=== PATIENT | female | born 1975 | race Caucasian/White ===

== ENCOUNTER 2018-04-20 21:48 | Emergency (ER) | payer OTHER ==
[~2018-04-20] VITALS: Ht 172.7 cm; Wt 118.2 kg
[2018-04-20] MEDS ORDERED: KETOROLAC TROMETHAMINE 30 MG/ML VIAL IVP ONE (22:30)
[2018-04-20] MEDS ORDERED: SODIUM CHLORIDE 0.9% 1,000 ML IV ONE (22:30)
[2018-04-20 22:40] LABS: BASOPHILS % (AUTO) 0.5 % (0.0-2.0); EOSINOPHILS % (AUTO) 0.8 % (1.0-6.0); HEMOGLOBIN 11.9 g/dL (12.0-16.0); LYMPHOCYTES # (AUTO) 1.9 K/uL (1.0-4.8); LYMPHOCYTES % (AUTO) 19.6 % (22.0-44.0); MEAN CORPUSCULAR HEMOGLOBIN 30.8 pg (26.0-34.0); MEAN CORPUSCULAR VOLUME 91 fL (80-100); MONOCYTES # (AUTO) 0.7 K/uL (0.1-1.0); MONOCYTES % (AUTO) 7.2 % (2.0-9.0); NEUTROPHILS # (AUTO) 6.9 K/uL (1.8-7.7); NEUTROPHILS % (AUTO) 71.9 % (40.0-70.0); PLATELET COUNT (AUTO) 331 K/uL (150-450); RED BLOOD CELL COUNT(AUTO) 3.87 MIL/uL (4.00-5.20); RED CELL DISTRIBUTION WIDTH 13.7 % (11.5-14.5)
[2018-04-20 23:05] LABS: ANION GAP 9 mmol/L (8-16); CALCIUM, TOTAL 8.9 mg/dL (8.8-10.5); CARBON DIOXIDE 25 mmol/L (22-29); CHLORIDE 101 mmol/L (98-107); CREATININE 0.99 mg/dL (0.60-1.30); GLOMERULAR FILTR. RATE CALC > 60 mL/min (>60); GLUCOSE,RANDOM 122 mg/dL (70-110); POTASSIUM 3.8 mmol/L (3.5-5.1); SODIUM SERUM 135 mmol/L (136-145); UREA NITROGEN, BLOOD 17 mg/dL (7-18)
[2018-04-20 23:16] LABS: ALANINE AMINOTRANSFERASE 30 U/L (12-78); ALBUMIN 3.6 g/dL (3.4-5.0); ALKALINE PHOSPHATASE 59 U/L (46-116); ASPARTATE AMINOTRANSFERASE 22 U/L (15-37); BILIRUBIN,TOTAL 0.2 mg/dL (0.1-1.0); HCG,QUANTITATIVE < 1 mIU/mL (0-6); LIPASE 280 U/L (73-393); TOTAL PROTEIN, SERUM 7.3 g/dL (6.4-8.2)
[2018-04-21 00:55] LABS: APPEARANCE,URINE CLOUDY (CLEAR); BILIRUBIN,URINE NEGATIVE (NEGATIVE); GLUCOSE, URINE (UA) NEGATIVE (NEGATIVE); KETONES,URINE TRACE mg/dL (NEGATIVE); LEUKOCYTE ESTERASE ,URINE NEGATIVE (NEGATIVE); NITRATE,URINE NEGATIVE (NEGATIVE); OCCULT BLOOD,URINE LARGE (NEGATIVE); PROTEIN,URINE NEGATIVE (NEGATIVE); UROBILINOGEN,URINE 0.2 mg/dL (<=1.0)
[2018-04-21] MEDS ORDERED: ONDANSETRON HCL 4 MG/2 ML VIAL IVP ONE (01:00)
[2018-04-21] MEDS ORDERED: MORPHINE SULFATE 4 MG/ML SYRINGE IVP ONE (01:00)
[2018-04-21 01:05] LABS: BACTERIA,URINE None Seen /HPF (None Seen); RBC,URINE 51-100 /HPF (0-2); SQUAMOUS EPITHELIAL CELL,UR Moderate /LPF (None Seen); WBC,URINE 0-2 /HPF (0-5)
[2018-04-21 03:40] VITALS: BP 123/78
== END 2018-04-21 03:58 | disposition home or self-care (01) ==
LOC: EMS 21:50 → EDBD 21:50 → EMS 04-21 03:58
DX: N20.0 Calculus of kidney (principal); N83.201 Unspecified ovarian cyst, right side; Z88.2 Allergy status to sulfonamides; Z88.8 Allergy status to other drugs, medicaments and biological substances
CPT/HCPCS: 36415; 74176; 80053; 81001; 83690; 84702; 85025; 96374; 96375; 99284; J1885; J2270; J2405; J7030

== ENCOUNTER 2021-01-13 20:52 | Emergency (ER) | payer OTHER ==
[~2021-01-13] VITALS: Ht 167.6 cm; Wt 68.2 kg
[2021-01-13 22:29] LABS: BASOPHILS % (AUTO) 0.5 % (0.0-2.0); EOSINOPHILS % (AUTO) 0.5 % (1.0-6.0); HEMATOCRIT 37.3 % (36-46); HEMOGLOBIN 12.4 g/dL (12.0-16.0); LYMPHOCYTES # (AUTO) 1.8 K/uL (1.0-4.8); LYMPHOCYTES % (AUTO) 25.1 % (22.0-44.0); MEAN CORPUSCULAR HEMOGLOBIN 32.2 pg (26.0-34.0); MEAN CORPUSCULAR HGB CONC 33.4 G/dL (31.0-37.0); MEAN CORPUSCULAR VOLUME 97 fL (80-100); MONOCYTES # (AUTO) 0.4 K/uL (0.1-1.0); MONOCYTES % (AUTO) 6.1 % (2.0-9.0); NEUTROPHILS # (AUTO) 4.9 K/uL (1.8-7.7); NEUTROPHILS % (AUTO) 67.8 % (40.0-70.0); PLATELET COUNT (AUTO) 299 K/uL (150-450); RED BLOOD CELL COUNT(AUTO) 3.86 MIL/uL (4.00-5.20); RED CELL DISTRIBUTION WIDTH 12.4 % (11.5-14.5)
[2021-01-13 22:37] LABS: ANION GAP 12 mmol/L (8-16); CALCIUM, TOTAL 9.1 mg/dL (8.8-10.5); CARBON DIOXIDE 25 mmol/L (22-29); CHLORIDE 106 mmol/L (98-107); CREATININE 0.97 mg/dL (0.60-1.30); GLOMERULAR FILTR. RATE CALC > 60 mL/min (>60); GLUCOSE,RANDOM 143 mg/dL (70-110); POTASSIUM 3.7 mmol/L (3.5-5.1); SODIUM SERUM 143 mmol/L (136-145); UREA NITROGEN, BLOOD 14 mg/dL (7-18)
[2021-01-13 22:48] LABS: ALANINE AMINOTRANSFERASE 22 U/L (12-78); ALKALINE PHOSPHATASE 51 U/L (46-116); ASPARTATE AMINOTRANSFERASE 14 U/L (15-37); BILIRUBIN,TOTAL 0.5 mg/dL (0.1-1.0); HCG,QUANTITATIVE < 1 mIU/mL (0-6); TOTAL PROTEIN, SERUM 7.4 g/dL (6.4-8.2)
[2021-01-13 23:20] VITALS: BP 136/70
[2021-01-14 00:11] LABS: COVID AG,FIA SOURCE NASOPHARYNGEAL
== END 2021-01-14 | disposition home or self-care (01) ==
LOC: EMS 22:56
DX: F41.9 Anxiety disorder, unspecified (principal); F15.10 Other stimulant abuse, uncomplicated; Z20.822 Contact with and (suspected) exposure to COVID-19; Z88.1 Allergy status to other antibiotic agents; Z88.2 Allergy status to sulfonamides; Z88.8 Allergy status to other drugs, medicaments and biological substances
CPT/HCPCS: 80053; 84702; 85025; 87426; 99283; G0480

== ENCOUNTER 2023-01-31 13:24 | Inpatient (IN) | payer MEDICAID, OTHER ==
[~2023-01-31] VITALS: Ht 165.1 cm; Wt 80.7 kg
[2023-01-31 16:37] LABS: BASOPHILS % (AUTO) 0.5 % (0.0-2.0); HEMATOCRIT 39.1 % (36-46); HEMOGLOBIN 13.2 g/dL (12.0-16.0); LYMPHOCYTES % (AUTO) 30.1 % (22.0-44.0); MEAN CORPUSCULAR HEMOGLOBIN 33.5 pg (26.0-34.0); MEAN CORPUSCULAR HGB CONC 33.8 G/dL (31.0-37.0); MEAN CORPUSCULAR VOLUME 99 fL (80-100); MONOCYTES # (AUTO) 0.5 K/uL (0.1-1.0); MONOCYTES % (AUTO) 7.8 % (2.0-9.0); NEUTROPHILS # (AUTO) 4.1 K/uL (1.8-7.7); NEUTROPHILS % (AUTO) 60.6 % (40.0-70.0); PLATELET COUNT (AUTO) 316 K/uL (150-450); RED BLOOD CELL COUNT(AUTO) 3.95 MIL/uL (4.00-5.20); RED CELL DISTRIBUTION WIDTH 12.8 % (11.5-14.5); WHITE BLOOD COUNT (AUTO) 6.8 K/uL (4.5-11.0)
[2023-01-31 16:49] LABS: ANION GAP 10 mmol/L (8-16); CALCIUM, TOTAL 9.5 mg/dL (8.8-10.5); CARBON DIOXIDE 30 mmol/L (22-29); CHLORIDE 103 mmol/L (98-107); CREATININE 0.82 mg/dL (0.60-1.30); GLOMERULAR FILTR. RATE CALC > 60 mL/min (>60); GLUCOSE,RANDOM 101 mg/dL (70-110); POTASSIUM 3.7 mmol/L (3.5-5.1); SODIUM SERUM 143 mmol/L (136-145); UREA NITROGEN, BLOOD 12 mg/dL (7-18)
[2023-01-31 16:56] LABS: ALANINE AMINOTRANSFERASE 29 U/L (12-78); ALKALINE PHOSPHATASE 57 U/L (46-116); ASPARTATE AMINOTRANSFERASE 14 U/L (15-37); BILIRUBIN,TOTAL 0.5 mg/dL (0.1-1.0); TOTAL PROTEIN, SERUM 7.6 g/dL (6.4-8.2)
[2023-01-31 17:00] LABS: ALCOHOL, BLOOD (SERUM) < 3 mg/dL (0-10)
[2023-01-31 17:01] LABS: ALCOHOL, URINE DRUG SCREEN NEGATIVE (NEGATIVE); AMPHET/METH SCREEN,URINE NEGATIVE (NEGATIVE); BARBITURATE SCREEN, URINE NEGATIVE (NEGATIVE); BENZODIAZEPINES SCREEN,URINE NEGATIVE (NEGATIVE); CANNABINOID SCREEN,URINE POSITIVE (NEGATIVE); COCAINE SCREEN,URINE NEGATIVE (NEGATIVE); METHADONE SCREEN, URINE NEGATIVE (NEGATIVE); OPIATE SCREEN,URINE NEGATIVE (NEGATIVE); PHENCYCLIDINE SCREEN,URINE NEGATIVE (NEGATIVE)
[2023-01-31] MEDS ORDERED: DiphenhydrAMINE HCL 50 MG CAPSULE PO ONE (18:15)
[2023-01-31] MEDS ORDERED: LORazepam 2 MG TABLET PO ONE (18:15)
[2023-01-31 18:45] LABS: COVID AG,FIA SOURCE NASAL SWAB
[2023-01-31 19:10] LABS: SARS-COV2 (COVID) ANTIGEN,FIA Negative (Negative)
[2023-02-01] MEDS: LORazepam 2 MG TABLET PO PRN ×2 (04:39→18:36)
[2023-02-01] MEDS ORDERED: INFLUENZA VIRUS VACCINE QVS 2023-24 (6MO+)/PF 60 MCG/0.5 ML SYRINGE IM. ONE (04:45)
[2023-02-01 09:34] VITALS: BP 117/65; PULSE 81; RESP 17; TEMP 97.9; O2SAT 99
[2023-02-01] MEDS: ARIPiprazole 5 MG TABLET PO SCH (12:48)
[2023-02-01] MEDS: FLUoxetine HCL 20 MG CAPSULE PO SCH (12:48)
[2023-02-01 20:03] VITALS: BP 113/65; PULSE 74; RESP 18; TEMP 97.6; O2SAT 99
[2023-02-02] MEDS: ARIPiprazole 5 MG TABLET PO SCH (08:54)
[2023-02-02] MEDS: FLUoxetine HCL 20 MG CAPSULE PO SCH (08:54)
[2023-02-02 09:10] VITALS: BP 125/73; PULSE 75; RESP 17; TEMP 98; O2SAT 97
[2023-02-02] MEDS: LORazepam 2 MG TABLET PO PRN ×3 (09:51→20:56)
[2023-02-02 10:07] LABS: HEPATITIS C AB (EIA) Non Reactive (Non Reactive)
[2023-02-02 22:22] VITALS: BP 125/68; PULSE 100; RESP 18; TEMP 97.6; O2SAT 98
[2023-02-03] MEDS: ZOLPIDEM TARTRATE 10 MG TABLET PO PRN ×2 (00:58→20:56)
[2023-02-03 08:37] VITALS: BP 119/61; PULSE 62; RESP 16; TEMP 98.4; O2SAT 96
[2023-02-03] MEDS: FLUoxetine HCL 20 MG CAPSULE PO SCH (08:38)
[2023-02-03] MEDS: HALOPERIDOL 5 MG TABLET PO PRN (08:38)
[2023-02-03] MEDS: LORazepam 2 MG TABLET PO PRN ×2 (08:38→16:25)
[2023-02-03] MEDS: ARIPiprazole 5 MG TABLET PO SCH (08:39)
[2023-02-03 20:30] VITALS: BP 110/75; PULSE 88; RESP 18; TEMP 97.4; O2SAT 98
[2023-02-04] MEDS: LORazepam 2 MG TABLET PO PRN ×4 (01:08→17:33)
[2023-02-04] MEDS ORDERED: PETROLATUM,WHITE 28 GM JELLY TP PRN (07:30)
[2023-02-04] MEDS ORDERED: MAGNESIUM HYDROXIDE SUSPENSION 30 ML UDCUP PO PRN (07:30)
[2023-02-04] MEDS ORDERED: GuaiFENesin/D-METHORPHAN [SUGAR-FREE] 200-20MG/10 ML SYRUP UDCUP PO PRN (07:30)
[2023-02-04] MEDS ORDERED: ONDANSETRON HCL 4 MG TABLET PO PRN (07:30)
[2023-02-04] MEDS ORDERED: IBUPROFEN 400 MG TABLET PO PRN (07:30)
[2023-02-04] MEDS ORDERED: CloNIDine HCL 0.1 MG TABLET PO PRN (07:30)
[2023-02-04] MEDS ORDERED: ALBUTEROL SULFATE HFA 90 MCG/PUFF 8 GM INHALER IH PRN (07:30)
[2023-02-04] MEDS ORDERED: NICOTINE 14 MG/24 HOUR PATCH TD PRN (07:30)
[2023-02-04] MEDS ORDERED: LOPERAMIDE HCL 2 MG CAPSULE PO PRN (07:30)
[2023-02-04] MEDS ORDERED: MAG HYDROX/ALUMINUM HYD/SIMETH ES 30 ML SUSPENSION UDCUP PO PRN (07:30)
[2023-02-04] MEDS ORDERED: ACETAMINOPHEN 325 MG TABLET PO PRN (07:30)
[2023-02-04] MEDS ORDERED: DOCUSATE SODIUM 100 MG CAPSULE PO PRN (07:30)
[2023-02-04] MEDS: FLUoxetine HCL 20 MG CAPSULE PO SCH (08:48)
[2023-02-04] MEDS: ARIPiprazole 5 MG TABLET PO SCH (08:48)
[2023-02-04 09:16] VITALS: BP 120/77; PULSE 60; RESP 17; TEMP 97.7; O2SAT 100
[2023-02-04] MEDS: HALOPERIDOL 5 MG TABLET PO PRN (17:23)
[2023-02-04 20:34] VITALS: BP 107/53; PULSE 74; RESP 18; TEMP 97.6; O2SAT 99
[2023-02-05 08:28] LABS: HEMOGLOBIN A1C 4.9 % (3.8-5.6)
[2023-02-05 08:32] LABS: CHOL/HDL RATIO 3.1 (3.9-5.7); THYROID STIMULATING HORMONE 1.32 uIU/mL (0.36-3.74)
[2023-02-05] MEDS: LORazepam 2 MG TABLET PO PRN ×2 (08:33→17:21)
[2023-02-05] MEDS: ARIPiprazole 5 MG TABLET PO SCH (08:33)
[2023-02-05] MEDS: FLUoxetine HCL 20 MG CAPSULE PO SCH (08:33)
[2023-02-05 08:55] VITALS: BP 113/81; PULSE 67; RESP 18; TEMP 97.8; O2SAT 100
[2023-02-05] MEDS: HALOPERIDOL 5 MG TABLET PO PRN ×2 (10:47→19:37)
[2023-02-05 20:36] VITALS: BP 119/73; PULSE 79; RESP 18; TEMP 97.8; O2SAT 79
[2023-02-06] MEDS: ZOLPIDEM TARTRATE 10 MG TABLET PO PRN (01:34)
[2023-02-06 01:36] VITALS: BP 106/73; PULSE 86; RESP 18; TEMP 97.6; O2SAT 97
[2023-02-06 09:29] VITALS: BP 105/73; PULSE 64; RESP 17; TEMP 98.1; O2SAT 100
[2023-02-06] MEDS: ARIPiprazole 5 MG TABLET PO SCH (09:56)
[2023-02-06] MEDS: FLUoxetine HCL 20 MG CAPSULE PO SCH (09:59)
[2023-02-06] MEDS: LORazepam 2 MG TABLET PO PRN ×3 (10:02→21:31)
[2023-02-06 20:55] VITALS: BP 110/60; PULSE 60; RESP 18; TEMP 97.6
[2023-02-07] MEDS: LORazepam 2 MG TABLET PO PRN ×2 (07:09→12:08)
[2023-02-07 08:41] VITALS: BP 117/70; PULSE 90; RESP 17; TEMP 98; O2SAT 99
[2023-02-07] MEDS: FLUoxetine HCL 20 MG CAPSULE PO SCH (08:53)
[2023-02-07] MEDS: ARIPiprazole 5 MG TABLET PO SCH (09:34)
[2023-02-07] MEDS: HALOPERIDOL 5 MG TABLET PO PRN ×2 (10:00→20:14)
[2023-02-07] MEDS ORDERED: BISACODYL 5 MG EC TABLET PO PRN (13:30)
[2023-02-07] MEDS: PHENYLEPHRINE/SHK LV/MIN OIL/PET 57 GM OINTMENT TP SCH (15:59)
[2023-02-07] MEDS: ZOLPIDEM TARTRATE 10 MG TABLET PO PRN (20:14)
[2023-02-07 20:21] VITALS: BP 116/67; PULSE 79; RESP 18; TEMP 97.9; O2SAT 97
[2023-02-08 08:19] VITALS: BP 109/66; PULSE 57; RESP 16; TEMP 97.7; O2SAT 97
[2023-02-08] MEDS: FLUoxetine HCL 20 MG CAPSULE PO SCH (08:35)
[2023-02-08] MEDS: ARIPiprazole 10 MG TABLET PO SCH (08:36)
[2023-02-08] MEDS: PHENYLEPHRINE/SHK LV/MIN OIL/PET 57 GM OINTMENT TP SCH ×2 (09:00→16:52)
[2023-02-08] MEDS: HALOPERIDOL 5 MG TABLET PO PRN (09:15)
[2023-02-08] MEDS: HydrOXYzine PAMOATE 25 MG CAPSULE PO PRN ×2 (10:40→16:50)
[2023-02-08 20:17] VITALS: BP 104/59; PULSE 57; RESP 18; TEMP 97.8; O2SAT 98
[2023-02-08] MEDS: MELATONIN 5 MG TABLET PO SCH (20:21)
[2023-02-09] MEDS: HydrOXYzine PAMOATE 25 MG CAPSULE PO PRN ×3 (08:23→18:56)
[2023-02-09] MEDS: FLUoxetine HCL 20 MG CAPSULE PO SCH (08:23)
[2023-02-09] MEDS: ARIPiprazole 10 MG TABLET PO SCH (08:23)
[2023-02-09] MEDS: PHENYLEPHRINE/SHK LV/MIN OIL/PET 57 GM OINTMENT TP SCH ×2 (08:25→16:48)
[2023-02-09 09:50] VITALS: BP 114/77; PULSE 63; RESP 18; TEMP 98.1; O2SAT 99
[2023-02-09] MEDS: HALOPERIDOL 5 MG TABLET PO PRN (14:26)
[2023-02-09] MEDS: MELATONIN 5 MG TABLET PO SCH (20:13)
[2023-02-09 20:36] VITALS: BP 116/72; PULSE 65; RESP 17; TEMP 98; O2SAT 98
[2023-02-10] MEDS: ARIPiprazole 10 MG TABLET PO SCH (08:21)
[2023-02-10] MEDS: FLUoxetine HCL 20 MG CAPSULE PO SCH (08:21)
[2023-02-10] MEDS: HydrOXYzine PAMOATE 25 MG CAPSULE PO PRN ×3 (08:23→17:48)
[2023-02-10] MEDS: PHENYLEPHRINE/SHK LV/MIN OIL/PET 57 GM OINTMENT TP SCH ×2 (08:24→17:00)
[2023-02-10 08:33] VITALS: BP 122/76; PULSE 63; RESP 17; TEMP 98.2; O2SAT 98
[2023-02-10 20:10] VITALS: BP 125/68; PULSE 64; RESP 18; TEMP 97.8; O2SAT 96
[2023-02-10] MEDS: MELATONIN 5 MG TABLET PO SCH (20:18)
[2023-02-11 07:57] LABS: APPEARANCE,URINE TURBID (CLEAR); BILIRUBIN,URINE NEGATIVE (NEGATIVE); COLOR,URINE LIGHT ORANGE (YELLOW); GLUCOSE, URINE (UA) NEGATIVE (NEGATIVE); KETONES,URINE NEGATIVE (NEGATIVE); LEUKOCYTE ESTERASE ,URINE TRACE (NEGATIVE); NITRATE,URINE NEGATIVE (NEGATIVE); OCCULT BLOOD,URINE NEGATIVE (NEGATIVE); PH,URINE 5.5 (5.0-8.0); PH,URINE DRUG SCREEN 5.5 (5.0-8.0); PROTEIN,URINE NEGATIVE (NEGATIVE); SPECIFIC GRAVITIY, URINE 1.025 (1.003-1.030); UROBILINOGEN,URINE <=1.0 mg/dL (<=1.0)
[2023-02-11 08:09] VITALS: BP 117/76; PULSE 66; RESP 17; TEMP 97.9; O2SAT 98
[2023-02-11 08:13] LABS: ALCOHOL, URINE DRUG SCREEN NEGATIVE (NEGATIVE); AMPHET/METH SCREEN,URINE NEGATIVE (NEGATIVE); BARBITURATE SCREEN, URINE NEGATIVE (NEGATIVE); BENZODIAZEPINES SCREEN,URINE NEGATIVE (NEGATIVE); CANNABINOID SCREEN,URINE POSITIVE (NEGATIVE); COCAINE SCREEN,URINE NEGATIVE (NEGATIVE); METHADONE SCREEN, URINE NEGATIVE (NEGATIVE); OPIATE SCREEN,URINE NEGATIVE (NEGATIVE); PHENCYCLIDINE SCREEN,URINE NEGATIVE (NEGATIVE)
[2023-02-11 08:17] LABS: AMORPHOUS SEDIMENT,UR Many /LPF (None Seen); BACTERIA,URINE None Seen /HPF (None Seen); RBC,URINE None Seen /HPF (0-2); WBC,URINE 0-2 /HPF (0-5)
[2023-02-11] MEDS: ARIPiprazole 10 MG TABLET PO SCH (08:24)
[2023-02-11] MEDS: FLUoxetine HCL 20 MG CAPSULE PO SCH (08:24)
[2023-02-11] MEDS: HydrOXYzine PAMOATE 25 MG CAPSULE PO PRN ×2 (08:24→13:26)
[2023-02-11] MEDS: PHENYLEPHRINE/SHK LV/MIN OIL/PET 57 GM OINTMENT TP SCH (08:26)
[2023-02-11] MEDS ORDERED: ARIP10TA38 PO (14:14)
[2023-02-11] MEDS ORDERED: FLUO20CA36 PO (14:15)
[2023-02-12] MEDS ORDERED: ARIP10TA38 PO (06:13)
[2023-02-12] MEDS ORDERED: FLUO20CA36 PO (06:13)
== END 2023-02-11 14:50 | disposition home or self-care (01) | DRG 751 ==
LOC: EMS 13:24 → B2S 18:59
PROVIDERS: ADMIT Psychiatry & Neurology Psychiatry; ATTEND Psychiatry & Neurology Psychiatry
DX: F33.3 Major depressive disorder, recurrent, severe with psychotic symptoms (principal); R45.851 Suicidal ideations; I10 Essential (primary) hypertension; N80.9 Endometriosis, unspecified; G47.00 Insomnia, unspecified; F14.90 Cocaine use, unspecified, uncomplicated; Z20.822 Contact with and (suspected) exposure to COVID-19; F15.90 Other stimulant use, unspecified, uncomplicated; F41.9 Anxiety disorder, unspecified; Z87.442 Personal history of urinary calculi; Z59.00 Homelessness unspecified; Z79.899 Other long term (current) drug therapy; Z88.2 Allergy status to sulfonamides
CPT/HCPCS: 80053; 80061; 80307; 81001; 83036; 84443; 85025; 86803; 87340; 99285; G0480; Q9967